=== PATIENT | female | born 1940 | race Caucasian/White ===

== ENCOUNTER 2018-03-11 14:52 | Emergency (ER) | payer MEDICARE, BC ==
[2018-03-11 15:27] VITALS: BP 145/81
[2018-03-11] MEDS ORDERED: Acetaminophen TAB* 325 MG PO ONE (15:32)
--- NOTE | 2018-03-11 15:49 | ED ---
Shortness of Breath - HPI Summary HPI Summary: 77 yr old female with the complaint of left posterior chest pain, onset three days ago,and sudden in onset, associated SOB, and fever, but no coughing, no sputum. She arrived from [place] on February 28 after 3.[address] in a car. She states she has felt winded at times. She was treated for Sinus and bronchitis in mid February. She quit smoking many many years ago. - History of Current Complaint Chief Complaint: UCRespiratory Time Seen by Provider: 03/11/18 15:31 - Allergy/Home Medications Allergies/Adverse Reactions: Allergies Allergy/AdvReac Type Severity Reaction Status Date / Time No Known Allergies Allergy Verified 03/11/18 15:14 Home Medications: Home Medications Allopurinol TAB* [Zyloprim 100 MG TAB*] 100 mg PO DAILY 03/11/18 [History Confirmed 03/11/18] Aspirin 81 mg CHEW TAB* [Aspirin Low Dose TAB*] 81 mg PO DAILY 03/11/18 [ History Confirmed 03/11/18] Atenolol TAB* [Tenormin TAB* 50 MG] 50 mg PO DAILY 03/11/18 [History Confirmed 03/11/18] Gabapentin CAP(*) [Neurontin 300 CAP(*)] 300 mg PO BEDTIME 03/11/18 [History Confirmed 03/11/18] Rosuvastatin Calcium [Crestor] 10 mg PO DAILY 03/11/18 [History Confirmed ] Valsartan/Hydrochlorothiazide [Valsartan/Hydrochlorothia] 1 tab PO DAILY [History Confirmed 03/11/18] PMH/Surg Hx/FS Hx/Imm Hx Cardiovascular History: Reports: Hx Hypertension - Cancer History Hx Chemotherapy: No Hx Radiation Therapy: No - Surgical History Surgery Procedure, Year, and Place: TUBAL LIGATION Infectious Disease History: No Infectious Disease History: Denies: Traveled Outside the [place] in Last 30 Days - Family History Known Family History: Positive: None - Social History Occupation: Retired Lives: With Family Alcohol Use: Occasionally Substance Use Type: Reports: None Smoking Status (MU): Former Smoker Have You Smoked in the Last Year: No Review of Systems Positive: Fever, Chills Eyes: Negative Negative: Sore Throat, Nasal Discharge Positive: Shortness Of Breath, Other - posterior left chest pain with breathing.. Negative: Cough Gastrointestinal: Negative Negative: Myalgia, Edema Skin: Negative Neurological: Negative Psychological: Normal All Other Systems Reviewed And Are Negative: Yes Physical Exam Triage Information Reviewed: Yes Vital Signs On Initial Exam: Initial Vitals Temp Pulse Resp BP Pulse Ox 101.1 F 93 21 145/81 96 03/11/18 15:18 03/11/18 15:18 03/11/18 15:18 03/11/18 15:18 03/11/18 15:18 Vital Signs Reviewed: Yes Appearance: Positive: Well-Appearing, No Pain Distress Skin: Positive: Warm, Skin Color Reflects Adequate Perfusion Head/Face: Positive: Normal Head/Face Inspection Eyes: Positive: EOMI ENT: Positive: Normal ENT inspection Neck: Positive: Nontender Respiratory/Lung Sounds: Positive: Clear to Auscultation, Decreased Breath Sounds - left base Cardiovascular: Positive: RRR. Negative: Murmur Abdomen Description: Positive: Nontender Musculoskeletal: Positive: Strength/ROM Intact. Negative: Edema Left, Edema Right Neurological: Positive: Sensory/Motor Intact, Alert, Oriented to Person Place, Time, CN Intact II-III Psychiatric: Positive: Normal - Cindy Coma Scale Best Eye Response: 4 - Spontaneous Best Motor Response: 6 - Obeys Commands Best Verbal Response: 5 - Oriented Coma Scale Total: 15 Diagnostics - Vital Signs Vital Signs Temp Pulse Resp BP Pulse Ox 03/11/18 15:18 101.1 F 93 21 145/81 96 - Laboratory Lab Statement: Any lab studies that have been ordered have been reviewed, and results considered in the medical decision making process. Course/Dx - Course Course Of Treatment: 77yr old female with pleuritic back pain, and SOB with fever with risk of PE, possible sepsis. She declined ambulance transfer to ER. Signed out AMA. Risk of sepsis, PE, , disability understood and verbalized. She states she will drive herself home and then have her drive her to hospital later. Patient also declined chest xray here, and prefers to go to ER for her work up later. - Diagnoses Provider Diagnoses: Shortness of breath, Pleuritic pain, Fever Discharge - Sign-Out/Discharge Documenting (check all that apply): Discharge/Admit/Transfer - Discharge Plan Condition: Good Disposition: AGAINST MEDICAL ADVICE Referrals: Santana Redmond DO [Primary Care Provider] - - Billing Disposition and Condition Condition: GOOD Disposition: Against Medical Advice
== END 2018-03-11 15:51 | disposition left against medical advice (07) ==
LOC: UCCORT 14:52
DX: R07.81 Pleurodynia (principal); R06.02 Shortness of breath; R50.9 Fever, unspecified
CPT/HCPCS: 99212; A9270-GY; G0463